=== PATIENT | male | born 1995 | race Caucasian/White ===

== ENCOUNTER 2017-01-20 00:45 | Emergency (ER) | payer SELFPAY ==
[~2017-01-20] VITALS: Ht 182.9 cm; Wt 77.7 kg
[2017-01-20] MEDS ORDERED: HYDROmorphone 1 MG/ML, 1ML ONE (01:10)
[2017-01-20] MEDS ORDERED: HYDROmorphone 1 MG/ML, 1ML IM ONE (01:30)
[2017-01-20 02:15] LABS: ASPARTATE AMINO TRANSFERASE 13 U/L (15-37); BLOOD UREA NITROGEN 11 mg/dL (7-18)
[2017-01-20 02:59] VITALS: BP 130/76
== END 2017-01-20 03:03 | disposition home or self-care (01) ==
LOC: ED 03:01
DX: R10.31 Right lower quadrant pain (principal); F17.200 Nicotine dependence, unspecified, uncomplicated
CPT/HCPCS: 36415; 74022; 76700; 80053; 81001; 83690; 85025; 87086; 99285